=== PATIENT | male | born 1995 | race Two or more races ===

== ENCOUNTER 2022-02-28 22:57 | Emergency (ER) | payer OTHER ==
[~2022-02-28] VITALS: Ht 154.9 cm; Wt 75.0 kg
[2022-03-01] MEDS ORDERED: HYDROCODONE/ACETAMINOPHEN 5-325 MG TABLET PO ONE (00:30)
[2022-03-01] MEDS ORDERED: HYDROmorphone 2 MG/ML VIAL IM ONE (04:00)
[2022-03-01 04:15] VITALS: BP 113/56
== END 2022-03-01 04:38 | disposition short-term general hospital (02) ==
LOC: EMS 23:01
DX: S82.51XA Displaced fracture of medial malleolus of right tibia, initial encounter for closed fracture (principal); S82.61XA Displaced fracture of lateral malleolus of right fibula, initial encounter for closed fracture; W17.89XA Other fall from one level to another, initial encounter; Y93.89 Activity, other specified; Y92.89 Other specified places as the place of occurrence of the external cause; Y99.8 Other external cause status
CPT/HCPCS: 99285; 29515; 73562; 73610; 73630; 96372; J1170; 99284